=== PATIENT | male | born 1990 | race Caucasian/White ===

== ENCOUNTER 2017-11-22 16:28 | Emergency (ER) | payer MEDICAID ==
[~2017-11-22] VITALS: Ht 177.8 cm; Wt 77.1 kg
[2017-11-22 16:41] VITALS: BP_SYST 114
[2017-11-22] MEDS ORDERED: HYDROcodone/ACETAMIN 5-325 MG TAB (NORCO/ VICODIN) PO ONE (17:00)
[2017-11-22 18:09] VITALS: BP_SYST 112
== END 2017-11-22 18:08 | disposition home or self-care (01) ==
LOC: SED 16:28
DX: M79.671 Pain in right foot (principal); W22.8XXA Striking against or struck by other objects, initial encounter; Y93.01 Activity, walking, marching and hiking; Y92.89 Other specified places as the place of occurrence of the external cause; Y99.8 Other external cause status
CPT/HCPCS: 99284